=== PATIENT | female | born 1990 | race Two or more races ===

== ENCOUNTER 2019-01-27 05:51 | Inpatient (IN) ==
[2019-01-27] MEDS ORDERED: ONDANSETRON 4 MG/2 ML VIAL IV PRN ×2 (06:19→18:10)
[2019-01-27] MEDS ORDERED: BUTORPHANOL 2 MG/ML VIAL IV PRN (06:19)
[2019-01-27] MEDS ORDERED: MEPERIDINE 50 MG/1 ML VIAL IV PRN (06:19)
[2019-01-27] MEDS ORDERED: FAMOTIDINE 20 MG/2 ML VIAL IV SCH (06:30)
[2019-01-27] MEDS ORDERED: OXYTOCIN/LR 20 UNIT/1,000 ML BAG IV SCH (06:30)
[2019-01-27] MEDS: LACTATED RINGERS 1,000 ML IV SCH ×2 (06:40→08:29)
[2019-01-27 06:50] LABS: Basophils % 0.3 % (0.0-0.8); Eosinophils # 0.1 10*3/uL (0.0-0.87); Eosinophils % 0.5 % (0.00-10.9); Hematocrit 32.4 VOL% (35.7-47.0); Hemoglobin 10.3 GM/DL (12.0-16.0); Immature Granulocytes % 1.4 %; Immature Granulocytes Absolute 0.14 #; Lymphocytes % 20.1 % (21.3-54.2); Mean Corpuscular HGB Conc 31.8 GM/DL (32-36); Mean Platelet Volume 8.6 FL (9.6-12.0); Monocytes % 7.2 % (1.7-12.7); Neutrophils % 70.5 % (38.7-73.9); Platelet Count 162 T/CUMM (130-400); Red Blood Count 3.56 MC/CUMM (3.8-5.5); Red Cell Distribution Width 12.4 % (9.3-17.3)
[2019-01-27] MEDS ORDERED: AMPICILLIN INJ 2,000 MG in SODIUM CHLORIDE 0.9% 100 ML IV ONE (06:59)
[2019-01-27] MEDS ORDERED: hydrOXYzine HCL 25 MG/1 ML VIAL IM PRN (07:37)
[2019-01-27] MEDS ORDERED: CITRIC ACID/SODIUM CITRATE 30 ML UDCUP PO ONE (07:37)
[2019-01-27] MEDS ORDERED: PROMETHAZINE 25 MG/1 ML VIAL IM ONE (07:37)
[2019-01-27] MEDS ORDERED: NALOXONE 0.4 MG/ML VIAL IV PRN (07:37)
[2019-01-27] MEDS ORDERED: diphenhydrAMINE 50 MG/1 ML VIAL IV PRN ×2 (07:37)
[2019-01-27] MEDS ORDERED: ePHEDrine 50 MG/ML AMP IV PRN (07:37)
[2019-01-27] MEDS ORDERED: LACTATED RINGERS 1,000 ML IV SCH ×2 (08:00→18:30)
[2019-01-27] MEDS ORDERED: fentaNYL 2 MCG/ROPIV 0.2% EPID 100 ML EPIDURAL SCH (08:00)
[2019-01-27 10:26] LABS: Apearance,Urine CLEAR (Clear); Bilirubin,Urine Negative (Negative); Blood, Urine Negative (Negative); Glucose,Urine (UA) Negative (Negative); Ketones,Urine 5 mg/dL (Negative); Mucus,Urine Occasional /LPF (Occasional); Nitrite,Urine Negative (Negative); Protein,Urine Negative; RBC,Urine 1 /HPF (0-4); Squamous Epithelial Cell,Urine Occasional /HPF (0-10); Urine Color Yellow (Yellow); Urine Specific Gravity 1.027 (1.001-1.035); WBC,Urine <1 /HPF (0-6)
[2019-01-27] MEDS: AMPICILLIN INJ 1,000 MG in SODIUM CHLORIDE 0.9% 100 ML IV SCH ×2 (11:13→16:03)
[2019-01-27] MEDS ORDERED: CARBOPROST TROMETHAMINE 250 MCG/ML AMP IM ONE (12:54)
[2019-01-27] MEDS ORDERED: LIDOCAINE 1% 50 ML VIAL ONE (12:54)
[2019-01-27] MEDS ORDERED: miSOPROStoL 200 MCG TABLET ONE (12:54)
[2019-01-27] MEDS ORDERED: METHYLERGONOVINE 0.2 MG/1 ML AMP ONE (12:54)
[2019-01-27] MEDS ORDERED: OXYTOCIN 10 UNIT/ML VIAL ONE (14:57)
[2019-01-27] MEDS ORDERED: OXYTOCIN 10 UNIT/ML VIAL IM ONE (14:59)
[2019-01-27] MEDS ORDERED: OXYTOCIN/LR 30 UNIT/1,000 ML BAG IV ONE (14:59)
[2019-01-27] MEDS ORDERED: ceFAZolin 3,000 MG in SYRINGE 1 EACH IV SCH (15:00)
[2019-01-27] MEDS ORDERED: LIDOCAINE MPF 2% /EPI 20 ML VIAL ONE (16:25)
[2019-01-27] MEDS ORDERED: fentaNYL 100 MCG/2 ML VIAL ONE (16:25)
[2019-01-27] MEDS ORDERED: MORPHINE 10 MG/10 ML VIAL ONE (16:25)
[2019-01-27] MEDS ORDERED: KETOROLAC 60 MG/2 ML VIAL IM ONE (16:25)
[2019-01-27 17:25] LABS: Cord Arterial Blood HCO3 18.9 MMOL/L
[2019-01-27 17:28] LABS: Cord Venous Blood HCO3 21.2 MMOL/L; Cord Venous Blood PCO2 41.5 MMHG; Cord Venous Blood PO2 27.6
[2019-01-27] MEDS ORDERED: HYDROmorphone 2 MG/1 ML VIAL IV PRN (17:32)
[2019-01-27] MEDS ORDERED: ACETAMINOPHEN 325 MG TABLET PO PRN (18:10)
[2019-01-27] MEDS ORDERED: OXYTOCIN/LR 20 UNIT/1,000 ML BAG IV ONE (18:10)
[2019-01-27] MEDS ORDERED: RHO(D) IMMUNE GLOBULIN 300 MCG SYRINGE IM ONE (18:10)
[2019-01-27] MEDS: IBUPROFEN 800 MG TABLET PO PRN (19:10)
[2019-01-27] MEDS ORDERED: KETOROLAC 30 MG/1 ML VIAL IV SCH (23:30)
[2019-01-28 01:07] LABS: Basophils % 0.1 % (0.0-0.8); Eosinophils % 0.3 % (0.00-10.9); Hematocrit 26.8 VOL% (35.7-47.0); Hemoglobin 8.6 GM/DL (12.0-16.0); Immature Granulocytes % 0.7 %; Immature Granulocytes Absolute 0.09 #; Lymphocytes # 1.7 10*3/uL (1.4-4.0); Lymphocytes % 12.3 % (21.3-54.2); Mean Corpuscular HGB Conc 32.1 GM/DL (32-36); Mean Corpuscular Volume 91.2 FL (87-102); Mean Platelet Volume 8.7 FL (9.6-12.0); Monocytes % 6.5 % (1.7-12.7); Neutrophils % 80.1 % (38.7-73.9); Platelet Count 153 T/CUMM (130-400); Red Blood Count 2.94 MC/CUMM (3.8-5.5); Red Cell Distribution Width 12.7 % (9.3-17.3); White Blood Count 13.6 T/CUMM (4-12)
[2019-01-28] MEDS: ceFAZolin 1,000 MG in SYRINGE 1 EACH IV SCH ×2 (01:34→09:35)
[2019-01-28 07:51] LABS: Basophils % 0.1 % (0.0-0.8); Eosinophils # 0.1 10*3/uL (0.0-0.87); Eosinophils % 0.8 % (0.00-10.9); Hematocrit 25.6 VOL% (35.7-47.0); Immature Granulocytes Absolute 0.12 #; Lymphocytes # 1.8 10*3/uL (1.4-4.0); Mean Corpuscular HGB Conc 31.3 GM/DL (32-36); Mean Corpuscular Volume 92.4 FL (87-102); Mean Platelet Volume 8.8 FL (9.6-12.0); Monocytes % 8.3 % (1.7-12.7); Neutrophils % 74.8 % (38.7-73.9); Platelet Count 157 T/CUMM (130-400); Red Blood Count 2.77 MC/CUMM (3.8-5.5); Red Cell Distribution Width 12.9 % (9.3-17.3); White Blood Count 12.3 T/CUMM (4-12)
[2019-01-28] MEDS: MULTIVITAMIN (PRENATAL) TABLET PO SCH (09:35)
[2019-01-28] MEDS: SIMETHICONE CHEW 80 MG TABLET PO PRN ×2 (09:35→20:08)
[2019-01-28] MEDS: DOCUSATE SODIUM 100 MG CAPSULE PO SCH ×2 (09:35→20:08)
[2019-01-28] MEDS: MAGNESIUM HYDROXIDE SUSP 30 ML UDCUP PO PRN ×2 (09:35→20:09)
[2019-01-28] MEDS ORDERED: ceFAZolin 1,000 MG in SYRINGE 1 EACH IV SCH (10:00)
[2019-01-28] MEDS: FUROSEMIDE 40 MG/4 ML VIAL IV SCH ×3 (12:31→23:53)
[2019-01-28] MEDS: IBUPROFEN 800 MG TABLET PO PRN (20:08)
[2019-01-28] MEDS: FERROUS SULFATE 325 MG TABLET PO SCH (20:08)
[2019-01-28] MEDS: METOCLOPRAMIDE 10 MG TABLET PO SCH (20:08)
[2019-01-29] MEDS: METOCLOPRAMIDE 10 MG TABLET PO SCH (03:33)
[2019-01-29] MEDS: FUROSEMIDE 40 MG/4 ML VIAL IV SCH (05:45)
[2019-01-29 07:48] VITALS: BP 114/70
[2019-01-29] MEDS: FERROUS SULFATE 325 MG TABLET PO SCH (09:53)
[2019-01-29] MEDS: MULTIVITAMIN (PRENATAL) TABLET PO SCH (09:53)
[2019-01-29] MEDS: MAGNESIUM HYDROXIDE SUSP 30 ML UDCUP PO PRN (09:53)
[2019-01-29] MEDS: DOCUSATE SODIUM 100 MG CAPSULE PO SCH (09:54)
[2019-01-29] MEDS: SIMETHICONE CHEW 80 MG TABLET PO PRN (09:54)
[2019-01-29] MEDS ORDERED: DIPH/TET/ACEL PERT BOOSTER VACCINE 0.5 ML VIAL IM ONE (11:27)
== END 2019-01-29 12:50 | disposition home or self-care (01) | DRG 788 ==
LOC: N.LDOUT 05:51 → N.LD 05:57 → N.OB 20:15
PROVIDERS: ADMIT Obstetrics & Gynecology; ATTEND Obstetrics & Gynecology
PROC: LDCSECT (ICD-10-PCS; 2019-01-27 14:00)